=== PATIENT | female | born 1970 | race African-American/Black ===

== ENCOUNTER 2016-11-21 22:32 | Emergency (ER) | payer OTHER ==
[~2016-11-21] VITALS: Ht 167.6 cm; Wt 77.0 kg
[2016-11-21 22:37] VITALS: Ht 167.6 cm; Wt 77.0 kg
[2016-11-21] MEDS ORDERED: IBUPROFEN 800 MG TAB PO ONE (23:30)
[2016-11-21] MEDS ORDERED: HYDROCODONE/APAP (5/325) TAB PO ONE (23:30)
[2016-11-22] MEDS ORDERED: GLIP-95 PO (00:11)
[2016-11-22] MEDS ORDERED: ASPI-664 PO (00:11)
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
[2016-11-22] MEDS ORDERED: ORPH100T PO (01:07)
[2016-11-22] MEDS ORDERED: NAPR-688 PO (01:07)
[2016-11-22] MEDS ORDERED: HYDR-906 PO (01:07)
[2016-11-22 01:31] VITALS: BP 128/75; PULSE 69; RESP 20
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
== END 2016-11-22 01:31 | disposition home or self-care (01) ==
LOC: E/R 22:32
DX: S20.219A Contusion of unspecified front wall of thorax, initial encounter (principal); E11.9 Type 2 diabetes mellitus without complications; V49.40XA Driver injured in collision with unspecified motor vehicles in traffic accident, initial encounter; Z79.84 Long term (current) use of oral hypoglycemic drugs; Z79.82 Long term (current) use of aspirin
CPT/HCPCS: 71010; 71100